=== PATIENT | female | born 1995 | race African-American/Black ===

== ENCOUNTER 2024-07-20 21:16 | Outpatient (CLI) | payer OTHER ==
[~2024-07-20] VITALS: Ht 160 cm; Wt 97.7 kg
--- NOTE | 2024-07-20 21:30 | NUR ---
G4L2 at 39 weeks and 4 days arrives to unit with complaint of contractions every 10 minutes. Pt states she has a history of fast labors and doesn't feel much pain until the very end. Pt denies loss of fluid or vaginal bleeding. Reports normal movement. Clean gown on. Pt oriented to room, call light within reach, bed in low and locked position. US and toco explained and applied. Vitals obtained. Admission assesment started. SVE 4/80/0, membranes intact.
[2024-07-20] MEDS ORDERED: LR 1,000 ML IV PRN (21:45)
[2024-07-20] MEDS ORDERED: PRENATAL (21:53)
[2024-07-20 22:00] VITALS: BP 124/81; PULSE 91; TEMP 97.9
[2024-07-20] MEDS ORDERED: Influenza Virus Vaccine, Trivalent '24-25 0.5 ML ONCE TODAY IM ONE (22:45)
[2024-07-20 23:00] VITALS: PULSE 89
--- NOTE | 2024-07-20 23:00 | NUR ---
SVE unchanged from previous exam and patient reports contractions are about the same. Pt reports with her history of fast labors she would like to stay for an additional hour and be rechecked.
--- NOTE | 2024-07-20 23:55 | NUR ---
This RN to bedside. Pt reports contractions are feeling better. SVE unchanged from previous exam. Pt states she would feel comfortable discharging home at this time. Physician notified.
[2024-07-21] VITALS: BP 123/67; PULSE 78; TEMP 97.7
--- NOTE | 2024-07-21 00:15 | NUR ---
Discharge instructions reviewed with patient, verbalized understanding. Educated on strict return precautions. Pt seen ambulating off unit in stable condition.
== END 2024-07-21 00:15 | disposition home or self-care (01) ==
LOC: LDRO 21:16
DX: O62.9 Abnormality of forces of labor, unspecified (principal); Z3A.39 39 weeks gestation of pregnancy

== ENCOUNTER 2024-07-25 06:15 | Inpatient (IN) | payer OTHER ==
[~2024-07-25] VITALS: Ht 160 cm; Wt 100.0 kg
[2024-07-25] VITALS (15 sets, daily range): BP systolic 100–145; BP diastolic 7–86; PULSE 66–113; TEMP 97.4–99.2
[~2024-07-25 06:15] MED LIST: PRENATAL
[2024-07-25] MEDS ORDERED: Penicillin G Potassium 5,000,000 UNITS in NS 100 ML IV ONE (06:30)
[2024-07-25] MEDS ORDERED: LR 1,000 ML IV SCH (06:30)
[2024-07-25] MEDS ORDERED: LR & Oxytocin 500 ML IV SCH (06:30)
--- NOTE | 2024-07-25 06:30 | NUR ---
PT ORIENTED TO ROOM AND CHANGED INTO GOWN. PLACED ON MONITORS. VS WNL. IV STARTED IN LEFT HAND WITH 18G. IV BOLUS STARTED. SVE /+1. PT DENIES LOF, BUT IS HAVING BLOODY SHOW. REGULAR MOVEMENT NOTED BY PT. PT STATED THAT SHE HAD HAD A LOT OF INTENSE CTX YESTERDAY BUT THEY STOPPED SO SHE DIDN'T COME IN.
--- NOTE | 2024-07-25 07:37 | NUR ---
0732- CALLED DR DONOVAN, WENT TO [facility]. 0737- DR DONOVAN CALLED BACK. PER THIS RN:PT REQUESTING TO NOT START PIT. SHE WOULD LIKE YOU TO COME BREAK HER WATER AND TRY WITHOUT. DR DONOVAN RESPONDED WITH WELL SHE REALLY NEEDS TO GET STARTED WITH SOME PIT TO GET HER GOING. THIS RN THEN TOLD DR DR DONOVAN THAT PT WAS JUST CHECKED AND IS [address] DONOVAN ASKED HOW OFTEN WAS THE PT CTXING. THIS RN REPORTED NOT VERY OFTEN. DR DONOVAN THEN ASKED IF WE COULD AT LEAST GET SOME PIT GOING TO GET SOME CONTRACTIONS GOING. BUT HE WILL BE IN IN ABOUT 45 MINUTES. THIS RN SAID THAT SHE WOULD TALK TO THE PT. THIS RN SPOKE WITH PT ABOUT STARTING LOW PIT TO GET HER CTXING. PT SAID SHE REALLY DOES NOT WANT PIT. SHE WOULD RATHER WAIT FOR DR DONOVAN TO BREAK HER WATER AND SHE WHAT HAPPENS FROM THERE.
[2024-07-25 08:02] LABS: BASO % 0.2 % (0.0-2.0); EOS # 0.1 K/mm3 (0.0-0.7); EOS % 0.6 % (0.0-4.0); GRAN # 7.2 K/mm3 (1.4-6.5); GRAN % 75.2 % (42.2-75.2); HEMATOCRIT 37.5 % (37.0-47.0); LYMPH # 1.5 K/mm3 (1.2-3.4); LYMPH % 16.1 % (20.0-51.0); MEAN CELL VOLUME 84 fl (80.0-100.0); MEAN CORPUSCULAR HEMOGLOBIN 27 pg (27-31); MEAN CORPUSCULAR HGB CONC 32 g/dl (33.0-37.0); MEAN PLATELET VOLUME 10.7 fl (7.4-10.4); MONO # 0.6 K/mm3 (0.1-0.6); MONO % 6.5 % (1.7-9.3); PLATELET COUNT 249 K/mm3 (130-400); RED BLOOD COUNT 4.46 M/mm3 (4.10-5.30); REDCELL DISTRIBUTION WIDTH-CV 15.1 % (11.5-14.5)
--- NOTE | 2024-07-25 08:30 | NUR ---
DIFFICULTY TRACING MATERNAL CTX DUE TO HABITUS. PT REPORTS TO THIS RN THAT IN HER PREVIOUS DELIVERIES THEY WHERE UNABLE TO TRACE CTX WELL. WILL CONTINUE TO ATTEMPT AND REPOSITION MONITORS. PT IS REPORTING FEELING CTX.
--- NOTE | 2024-07-25 09:47 | NUR ---
CALLED DR DONOVAN TO LET HIM KNOW PT IS NOW IN [facility]IVE LAB[facility]. CTX ARE INTENSE. SVE , BABY WELL APPLIED TO CERVIX. MARIA VICTORIA DONOVAN REPONDED OKAY, KEEP ME UPDATED.
[2024-07-25] MEDS ORDERED: Penicillin G Potassium 2,500,000 UNITS in NS 100 ML IV SCH (10:21)
--- NOTE | 2024-07-25 10:32 | NUR ---
1012- PT REPORTS FEELING PRESURE. SVE 8-/0. 1013- CALLED DR DONOVAN AND REPORTED SVE. DR DONOVAN ON HIS WAY. 1020- DR DONOVAN AT BEDSIDE, PREPAIRING FOR DELIVERY. PT COMPLETE. 1026- PT BEGAN PUSHING. 1032- SPONTANEOUS VAGINAL DELIVERY OF A VIABLE BABY BOY. NUCHAL X1. INFANT WAS PLACED ON MOTHERS CHEST AND STIMULATED. CARE OF WAS TAKEN OVER BY NURSERY NURSE JORDANA. CORD WAS CLAMPED AND CUT BY PT. 1038- SPONTANEOUS DELIVERY OF THE PLACENTA BY DR DONOVAN. DR DONOVAN REPAIRED A SUPERFICAL PERINEAL LAC AND A VIDYA-CLITORAL LAC. PT NUMBED WITH LIDOCAIN. PT REPOSITIONED AFTER DELIVERY TO . VS WNL. BLEEDING MINIMAL. QBL 200.
[2024-07-25] MEDS ORDERED: Witch Hazel 50% Pads Bulk TUB TP PRN (11:15)
[2024-07-25] MEDS ORDERED: Magnes Hydrox (MOM) 80 MG/ML 30 ML CUP PO PRN (11:15)
[2024-07-25] MEDS ORDERED: Naloxone 0.4 MG/ML VIAL IV PRN (11:15)
[2024-07-25] MEDS ORDERED: Mag/Al Hydrox/Simeth Susp 30 ML CUP PO PRN (11:15)
[2024-07-25] MEDS ORDERED: Acetaminophen 500 MG TAB PO SCH (11:15)
[2024-07-25] MEDS ORDERED: Measles/Mumps/Rubella Virus Vaccine Live w Diluent 0.5 ML VIAL SQ SCH (11:15)
[2024-07-25] MEDS ORDERED: Phenylephrine/Mineral Oil/Petrolatum 57 GM TUBE RC PRN (11:15)
[2024-07-25] MEDS ORDERED: Loratadine 10 MG TAB PO PRN (11:15)
[2024-07-25] MEDS ORDERED: Ibuprofen 600 MG TAB PO SCH (11:15)
[2024-07-25] MEDS ORDERED: oxyCODONE 5 MG TAB PO PRN (11:15)
[2024-07-25] MEDS ORDERED: Sennosides/Docusate 8.6-50 MG TAB PO SCH (17:00)
[2024-07-25] MEDS ORDERED: traZODone 50 MG TAB PO PRN (21:00)
[2024-07-26 03:30] VITALS: BP 115/69; PULSE 74; TEMP 98
[2024-07-26 07:33] VITALS: BP 119/84; PULSE 67; TEMP 98.2
[2024-07-26] MEDS ORDERED: IBU600 MG PO (08:53)
[2024-07-26] MEDS ORDERED: Influenza Virus Vaccine, Trivalent '24-25 0.5 ML SYRINGE IM SCH ×2 (09:00→10:30)
--- NOTE | 2024-07-26 11:04 | NUR ---
Initial visit; Patient thanked Multigrapher for looking in on her and her son. Multigrapher offered Congratulations and Blessings to their family.
[2024-07-26 15:45] VITALS: BP 119/85; PULSE 74; TEMP 98.8
[2024-07-26 19:45] VITALS: BP 130/87; PULSE 67; TEMP 98.8
[2024-07-27 07:45] VITALS: BP 146/72; PULSE 65; TEMP 97.7
--- NOTE | 2024-07-27 09:54 | NUR ---
PT GIVEN BOTH WRITTEN AND VERBAL DISCHARGE INSTRUCTIONS. PT ENCOURAGED TO KEEP ALL SCHEDULED FOLLOW UP APPOINTMENTS. PT EDUCATED ON SIGNS AND SYMPTOMS THAT WOULD REQUIRE PT TO BE SEEN BY A MEDICAL PROFESSIONAL. PT VERBALIZES UNDERSTANDING AND HAS NO QUESTIONS AT THIS TIME.
== END 2024-07-27 12:07 | disposition home or self-care (01) | DRG 807 ==
LOC: LDR 06:15 → OB 06:15
PROVIDERS: ADMIT Obstetrics & Gynecology
PROC: 3E033VJ Introduction of Other Hormone into Peripheral Vein, Percutaneous Approach (ICD-10-PCS; principal; 2024-07-25)
PROC: 10E0XZZ Delivery of Products of Conception, External Approach (ICD-10-PCS; 2024-07-25)
PROC: 0HQ9XZZ Repair Perineum Skin, External Approach (ICD-10-PCS; 2024-07-25)
DX: O48.0 Post-term pregnancy (principal); Z37.0 Single live birth; O99.02 Anemia complicating childbirth; O99.214 Obesity complicating childbirth; Z3A.40 40 weeks gestation of pregnancy; O69.81X0 Labor and delivery complicated by cord around neck, without compression, not applicable or unspecified; O70.0 First degree perineal laceration during delivery
CPT/HCPCS: J2540; J2590; J7120